=== PATIENT | female | born 1970 | race Caucasian/White ===

== ENCOUNTER 2016-08-14 13:54 | Emergency (ER) | payer OTHER ==
[~2016-08-14] VITALS: Ht 167.6 cm; Wt 68.0 kg
[~2016-08-14 13:54] MED LIST: CLONAZEPAM1 M2 PO; CYCLOBENZAPRINE10 M1 PO; KETOROLAC TROME10 M1 PO; LITHIUM CARBON150 M1 PO; LITHIUM CARBON300 M4 PO; MEDROL4 M2 PO; OLANZAPINE15 M1 PO
[2016-08-14 13:57] VITALS: BP 146/92
[2016-08-14] MEDS ORDERED: PYRIDIUM100 M1 PO (15:12)
[2016-08-14] MEDS ORDERED: CIPRO500 M1 PO (15:12)
--- NOTE | 2016-08-14 15:12 | ED GI/GU/ABDOMINAL COMPLAINT ---
History of Present Illness General Chief Complaint: Female Urogenital Problems Stated Complaint: ?UTI Source: patient Exam Limitations: no limitations Vital Signs & Intake/Output Vital Signs & Intake/Output Vital Signs Date Time Temp Pulse Resp B/P B/P Pulse O2 O2 Flow FiO2 Mean Ox Delivery Rate 08/14 1448 Room Air 08/14 1357 99.0 86 15 146/92 97 Room Air Room Air Allergies Coded Allergies: egg (UNKNOWN EGG WHITES 08/14/16) Reconcile Medications Ciprofloxacin HCl (Cipro) 500 MG TABLET 1 TAB PO BID uti Clonazepam 1 MG TABLET 1 TAB PO BIDP PRN . (Reported) Verlot Carbonate 150 MG CAPSULE 1 CAP PO DAILY MENTAL HEALTH (Reported) Verlot Carbonate 300 MG CAPSULE 3 CAP PO QPM MENTAL HEALTH (Reported) Olanzapine 15 MG TABLET 1 TAB PO QPM . (Reported) Phenazopyridine HCl (Pyridium) 100 MG TABLET 1 TAB PO TID uti Triage Note: PT TO ED FOR ?UTI. PT REPORTS PRESSURE IN URETHRA FOR ABOUT A WEEK, DENIES BURNING WITH URINATION, BUT IT DOES BURN AFTER PT FINISHES VOIDING. Triage Nurses Notes Reviewed? yes ? n Is pt currently ? No Onset: Abrupt Duration: week(s): (1), constant, continues in ED Timing: recent history Location: urethral Radiation: no radiation Activities at Onset: none No Modifying Factors: none HPI: 46-year-old female comes into emergency room with complaints of burning with urination and increased frequency. Patient reports that the burning usually occurs after she voids. Some mild low back pain. Denies any fever chills vomiting. Nothing seems to make the symptoms better or worse. Denies any other associated symptoms. Past History Travel History Traveled to [place] past 21 day No Medical History Any Pertinent Medical History? see below for history Neurological: NONE EENT: NONE Cardiovascular: NONE Respiratory: NONE Gastrointestinal: NONE Hepatic: NONE Renal: NONE Musculoskeletal: NONE Psychiatric: bipolar disease Endocrine: NONE Blood Disorders: NONE Cancer(s): NONE APPRAISER ART/Reproductive: NONE Surgical History Surgical History: non-contributory Psychosocial History Who do you live with Spouse What is your primary language Ken[place] Tobacco Use: Current Daily Use Daily Tobacco Use Amount/Type: => 5 Cigarettes daily ETOH Use: denies use Illicit Drug Use: denies illicit drug use Family History Hx Contributory? No Review of Systems Review of Systems Constitutional: Reports: no symptoms. EENTM: Reports: no symptoms. Respiratory: Reports: no symptoms. Cardiovascular: Reports: no symptoms. GI: Reports: no symptoms. Genitourinary: Reports: see HPI. Musculoskeletal: Reports: no symptoms. Skin: Reports: no symptoms. Neurological/Psychological: Reports: no symptoms. Hematologic/Endocrine: Reports: no symptoms. Immunologic/Allergic: Reports: no symptoms. All Other Systems: Reviewed and Negative Physical Exam Physical Exam General Appearance: well developed/nourished, no apparent distress, alert Head: atraumatic, normal appearance Eyes: Bilateral: normal appearance. Ears, Nose, Throat, Mouth: hearing grossly normal, moist mucous membrane Neck: normal inspection Respiratory: normal breath sounds, no respiratory distress Cardiovascular: regular rate/rhythm Gastrointestinal: soft, tenderness (mild suprapubic) Back: normal inspection Extremities: normal range of motion Neurologic/Psych: awake, alert, oriented x 3 Skin: intact, normal color Core Measures ACS in differential dx? No Severe Sepsis Present: No Septic Shock Present: No Progress Differential Diagnosis: appendicitis, biliary colic, bowel obstruction, intrauterine , kidney stone, ovarian cyst, ovarian torsion, pancreatitis, PID/cervicitis, threatened AB, UTI/pyelo Plan of Care: Orders Procedure Date/time Status Add-on Test (ER Only) 08/14 1526 Active URINALYSIS 08/14 1400 Complete Laboratory Tests 08/14/16 1405: Urinalysis LIGHT H, Urine Color STRAW, Urine Clarity HAZY H, Urine pH 6.5, Ur Specific Robinson <= 1.005, Urine Protein NEG, Urine Ketones NEG, Urine Nitrite NEG, Urine Bilirubin NEG, Urine Urobilinogen 0.2, Ur Leukocyte Esterase LARGE H , Ur Microscopic SEDIMENT EXAMINED, Urine RBC FEW H, Urine WBC 25-50 H, Ur Epithelial Cells RARE, Urine Bacteria RARE H, Urine Hemoglobin LARGE H, Urine Glucose NEG Initial ED EKG: none Comments: 08/14/2016 3:25:34 PM Patient clinically looks well. Patient is nontoxic-appearing. Symptoms most consistent with uncomplicated UTI. Due to back pain patient covered with Cipro in case of early pyelonephritis. Departure Departure Disposition: HOME OR SELF CARE Condition: Stable Clinical Impression Primary Impression: UTI (urinary tract infection) Referrals: PATIENT HAS NO PRIMARY CARE DR (PCP/Family) Additional Instructions: Take ciprofloxacin and referred him as prescribed. Drink plenty fluids. Rest. Return if any fever or vomiting or any other concerns worsening symptoms. Please go over all results of today's visit with your primary care doctor. Contact your primary care doctor to let them know you were here in the emergency room. There may be nonspecific findings which may not be related to your visit today here in the emergency room but may require further evaluation and chronic monitoring by your primary care doctor. If you had a laceration today the chance of foreign body always remains. You should follow-up with your primary care doctor for recheck in 3-5 days for a wound check. If you had an x-ray done there is a chance that a fracture could have been missed on initial read and you should follow-up with your primary care doctor for repeat x-rays if symptoms persist. If your blood pressure was elevated here in the emergency room please have rechecked by her primary care doctor within the next 48 hours by your primary care doctor. If you were prescribed a narcotic here in the emergency room or any type of controlled substances you're not allowed to drive while taking this medication or operate any type of heavy machinery. Narcotics can make you feel lightheaded dizziness nausea and can cause constipation. You may need to sampler pickup a stool softener. Thank you for choosing [facility] emergency room. Please return to the emergency room immediately if you have any other concerns worsening of symptoms. Departure Forms: Customer Survey General Discharge Information Prescriptions: Current Visit Scripts Ciprofloxacin HCl (Cipro) 1 TAB PO BID #14 TAB Phenazopyridine HCl (Pyridium) 1 TAB PO TID #6 TAB
== END 2016-08-14 15:19 ==
LOC: ERH 13:54
DX: N39.0 Urinary tract infection, site not specified (principal); M54.5 Low back pain
CPT/HCPCS: 81001; 87086